=== PATIENT | female | born 1995 | race Two or more races ===

== ENCOUNTER 2025-01-18 08:37 | Inpatient (IN) | payer MEDICAID ==
[~2025-01-18] VITALS: Ht 170 cm; Wt 90.3 kg
[2025-01-18] MEDS ORDERED: LIDOCAINE 2%HCL (LOCAL ANESTH.) INJ 20ML MDV IJ PRN (09:00)
[2025-01-18] MEDS ORDERED: BUTORPHANOL TARTRATE 2 MG/1 ML VIAL IV PRN ×2 (09:00)
[2025-01-18 09:58] LABS: Hematocrit 38.0 % (36.0-46.0); Hemoglobin 13.0 g/dL (12.2-16.2); Mean Corpuscular Hemoglobin 32.3 pg (28.0-32.0); Mean Corpuscular Volume 94.5 fL (80.0-100.0); Nucleated Red Blood Cells % 0.1 %
[2025-01-18 10:09] LABS: Urine Protein, UAD Negative (Negative)
[2025-01-18 10:11] LABS: INR 0.97 (0.9-1.15); Partial Thromboplastin Time 26.2 SEC (24.5-34.5); Prothrombin Time 10.3 sec (9.3-11.8)
[2025-01-18 10:13] LABS: Amphetamine Screen, Urine Neg (NEGATIVE); Barbiturate Scree,Urine Neg (NEGATIVE); Benzodiazephine Screen, Urine Neg (NEGATIVE); Cannabinoid Screen, Urine Neg (NEGATIVE); Cocaine Screen, Urine Neg (NEGATIVE); Opiate Scree,Urine Neg (NEGATIVE); Phencyclidine Screen, Urine Neg (NEGATIVE)
[2025-01-18 10:13] LABS: Alanine Aminotransferase 12 U/L (7-40); Albumin 3.9 g/dL (3.2-4.8); Anion Gap 11 (5-15); BUN/Creatinine Ratio 14.5 (10.0-20.0); Calcium 9.1 mg/dL (8.7-10.4); Carbon Dioxide 21 mmol/L (20-31); Potassium 3.7 mmol/L (3.5-5.1); Sodium 139 mmol/L (136-145); Total Protein 6.1 g/dL (5.7-8.2)
[2025-01-18 10:14] LABS: Bilirubin, Total 0.5 mg/dL (0.2-1.0)
[2025-01-18 10:23] LABS: Alkaline Phosphatase 135 U/L (46-116); Blood Urea Nitrogen 9 mg/dL (9-23); Chloride 107 mmol/L (98-107); Glucose 107 mg/dL (74-106)
[2025-01-18] MEDS: WITCH HAZEL-GLYCERIN PAD TOP PRN (11:30)
[2025-01-18] MEDS: LACTATED RINGER'S 1,000 ML IV SCH (11:30)
[2025-01-18] MEDS: DERMOPLAST 60ML BOTTLE TOP PRN (11:30)
[2025-01-18] MEDS: PHISODERM TOP SOLN 240ML BTL TOP PRN (11:30)
[2025-01-18] MEDS ORDERED: NALBUPHINE HCL 10 MG/1ml INJECTION IV PRN (23:00)
--- NOTE | 2025-01-19 05:55 | DVHHP2 ---
OB CC & HPI Date Date of Admission: Jan 19, 2025 Patient Identification: : 1 Para: 0 EDC: Jan 27, 2025 EGA: 39 wks Chief Complaints: Reason for admission: induction of labor (Patients primary sent for induction 2nd GDM 39 weeks, ) Admission Nurse Assessment Rev: No History of Present Complaints Patient states " she had care in [place] early 1st trimester and was given her current due date". [facility] records say " no care prior ". Dr Rosales her primary has sent for induction. I am covering for the weekend. Past Medical History Cardiac: No pertinent Hx Pulmonary: No pertinent Hx Central Nervous System: No pertinent Hx GI: No pertinent Hx Hemotology/Oncology: No pertinent Hx Hepatobiliary: No pertinent Hx Psychiatric: No pertinent Hx Musculoskeletal: No pertinent Hx Rheumotologic: No pertinent Hx Infectious Disease: No peritnent Hx ENT: No pertinent Hx Renal/: No pertinent Hx Endocrine: No pertinent Hx Dermatology: No pertinent Hx Past Surgical History: No pertinent Hx OB History OB History Care: Limited Care Ultrasounds: Normal mid trimester US Obstetrical Complications: Gestational Diabetes Medical Complications: None Allergies: Coded Allergies: NO KNOWN ALLERGIES (Unverified , 01/18/25) Current Medications Current Medications Medications (Trade) Dose Ordered Sig/Akshat Route PRN Reason Start Time Stop Time Status Last Admin Lactated Ringer's 1,000 ml @ 125 mls/hr Q8H IV 01/18/25 09:00 01/18/25 19:37 Witch Afsaneh (Tucks) 1 pad PRN PRN TOP PERINEAL AREA DISCOMFORT 01/18/25 09:00 01/18/25 11:30 Sodium Lauryl Sulfate (Phisoderm) 240 ml PRN PRN TOP PERINEAL AREA DISCOMFORT 01/18/25 09:00 01/18/25 11:30 Benzocaine (Dermoplast) 1 applic PRN PRN TOP PERINEAL AREA DISCOMFORT 01/18/25 09:00 01/18/25 11:30 Butorphanol Tartrate (Stadol Injection) 1 mg Q4HPRN PRN IV MODERATE PAIN (4-6 PAIN SCALE) 01/18/25 09:00 Cancel Butorphanol Tartrate (Stadol Injection) 2 mg Q4HPRN PRN IV SEVERE PAIN (7-10 PAIN SCALE) 01/18/25 09:00 Cancel Lidocaine HCl (Xylocaine) 20 ml ONCE PRN IJ PERINEAL AREA DISCOMFORT 01/18/25 09:00 Misoprostol (Cytotec) 50 mcg Q4HPRN PRN PO CERVICAL RIPENING 01/18/25 11:00 01/19/25 04:00 Nalbuphine HCl (Nubain) 10 mg Q4HP PRN IV MODERATE PAIN (4-6 PAIN SCALE) 01/18/25 23:00 Oxytocin 1,000 ml @ 6 ml/hr Q24H IV 01/18/25 23:00 Family & Social History Family/Social History Blood Type: O+ Rubella: immune RPR/VDRL: Negative GBS Status: Negative HBsAG: Negative Review of Systems Constitutional: No symptom reported Ears, Nose, & Throat: No symptom reported Eyes: No symptom reported Pulmonary/Respiratory: No symptom reported Cardiovascular: No symptom reported Gastrointestinal: No symptom reported Genitourinary: No symptom reported Musculoskeletal: No symptom reported Skin: No symptom reported Psychiatric: No symptom reported Endocrine: No symptom reported Hemotologic/Lymphatic: No symptom reported OB Admission Exam Physical Exam HEENT: TMs Normal, Fontanelles Normal, Nasal Mucosa Normal, Eyes non-injected, Oropharynx Normal, PERRLA, Moist Membranes, EOMI Heart: Rhythm Normal Lungs: Clear Abdomen: Gravid Extremities: Normal Reflexes: Normal Cervical Dilatation: 1cm Effacement: 25% Station: -3 Membranes: Intact Heart Rate: 130's Accelerations: Accelerations Present Decelerations: No Decelerations Short Term Variability: Present Halfway Variability: Average (6-25) Contractions on Admission: < 5 Minutes Apart Intensity: Mild OB Plan Plan Admitting Diagnosis: Induction of labor Plan: Induction (s/p 5 Cytotec) NILTON SANTIAGO DO Jan 19, 2025 05:55
--- NOTE | 2025-01-19 06:09 | DVHPN2 ---
Chief Complaints Patient reports: No new complaints, Feels better Nursing reports: No new complaints, No abdominal pain (only contraction pain mild), No chest pain, No dizziness, No cough Objective Vitals reassuring heart tones, maternal reassuring Medications Current Medications Medications (Trade) Dose Ordered Sig/Akshat Route PRN Reason Start Time Stop Time Status Last Admin Benzocaine (Dermoplast) 1 applic PRN PRN TOP PERINEAL AREA DISCOMFORT 01/18/25 09:00 01/18/25 11:30 Butorphanol Tartrate (Stadol Injection) 1 mg Q4HPRN PRN IV MODERATE PAIN (4-6 PAIN SCALE) 01/18/25 09:00 Cancel Butorphanol Tartrate (Stadol Injection) 2 mg Q4HPRN PRN IV SEVERE PAIN (7-10 PAIN SCALE) 01/18/25 09:00 Cancel Lactated Ringer's 1,000 ml @ 125 mls/hr Q8H IV 01/18/25 09:00 01/18/25 19:37 Lidocaine HCl (Xylocaine) 20 ml ONCE PRN IJ PERINEAL AREA DISCOMFORT 01/18/25 09:00 Misoprostol (Cytotec) 50 mcg Q4HPRN PRN PO CERVICAL RIPENING 01/18/25 11:00 01/19/25 04:00 Nalbuphine HCl (Nubain) 10 mg Q4HP PRN IV MODERATE PAIN (4-6 PAIN SCALE) 01/18/25 23:00 Oxytocin 1,000 ml @ 6 ml/hr Q24H IV 01/18/25 23:00 Sodium Lauryl Sulfate (Phisoderm) 240 ml PRN PRN TOP PERINEAL AREA DISCOMFORT 01/18/25 09:00 01/18/25 11:30 Jack Afsaenh (Tucks) 1 pad PRN PRN TOP PERINEAL AREA DISCOMFORT 01/18/25 09:00 01/18/25 11:30 General: Normal Head/Eyes: Normal ENT: Normal Neck: Normal Lungs: Normal Cardiovascular: Normal Abdominal: Normal Musculoskeletal: Normal Extremities: Normal Skin: Normal Neurological: Normal Studies Laboratory Tests 01/18/25 09:29 Test 01/18/25 09:29 Range/Units Serum Glucose 107 H 74-106 mg/dL Ass/Plan Assessment hosptial day #2 Plan Plan : Pitocin NILTON Miranda DO Jan 19, 2025 06:09
[2025-01-19] MEDS: LACT. RINGERS/OXYTOCIN 20UNITS 1,000 ML IV SCH (09:15)
--- NOTE | 2025-01-20 06:01 | DVHPN2 ---
Chief Complaints Patient reports: No new complaints, Feels better, Other (excellent movement No sig change in cervix 3cm 50% -2) Nursing reports: No new complaints, No abdominal pain (only contraction pain mild), No chest pain, No dizziness, No cough Objective General: Normal Head/Eyes: Normal ENT: Normal Neck: Normal Lungs: Normal Cardiovascular: Normal Abdominal: Normal Musculoskeletal: Normal Extremities: Normal Skin: Normal Neurological: Normal Studies Laboratory Tests 01/18/25 09:29 Test 01/18/25 09:29 Range/Units Serum Glucose 107 H 74-106 mg/dL Ass/Plan Assessment hosptial day #3 on Pitocin s/p multiple cytotec Plan continued induction... Long discussion with regards to continued induction and how reassuring her baby has looked , Options given for continued induction, discharge home to return for another trial induction, or section for failed induction. D/W her primary OB Dr Rosales who is aware of patients condition. Patient would like to continue induction at this time. 4:50 still no progress patient requesting to proceed with section ; OR notified : Risks benefits complications discussed with partner marketing manager again after this AM discussion. This discussion not limited to infection , bleeding, transfusion, pain, paralysis , PE , DVT , UT, Stroke and . We discussed risks associated with options in the future. All questions and answered and encouraged. NILTON SANTIAGO DO Jan 20, 2025 06:01
--- NOTE | 2025-01-20 08:18 | DVH ---
LIMITED OB ULTRASOUND > 14 WKS: HISTORY: Presentation and EFW TECHNIQUE: Multiple real-time grayscale images of the gravid uterus with duplex Doppler color flow an d M-mode spectral analysis. TRANSDUCER: Transabdominal COMPARISON: None FINDINGS: IUP single live fetus at 38 weeks and 5 days based on composite averages of the BPD, head circumferen ce, abdominal circumference and femur length Estimated weight 3408 grams heart rate 130 beats per minute TERRI 15.3 cm Cervix is not visualized Cephalic Presentation Fundal Placenta without previa or abruption. IMPRESSION: IUP single live fetus at 38 weeks and 5 days AUA corresponding to an TIFFANI of 01/29/2025
[2025-01-20] MEDS ORDERED: ceFAZolin 2 GM/D5W50ml 50 ML IV ONE (13:45)
[2025-01-20] MEDS ORDERED: MIDAZOLAM HCL 2MG/2ML 2ml VIAL (1mg/ml) ONE (15:36)
[2025-01-20] MEDS ORDERED: SODIUM CHLORIDE LOCK 20 ML ONE (15:36)
[2025-01-20] MEDS ORDERED: ONDANSETRON HCL 4 MG/2 ML VIAL ONE (15:36)
[2025-01-20] MEDS ORDERED: MORPHINE SULF PF 5 MG/10 ML VIAL ONE (15:36)
[2025-01-20] MEDS ORDERED: KETAMINE 50mg/ML 1ml syringe ONE (15:36)
[2025-01-20] MEDS ORDERED: fentaNYL CITRATE 100 MCG/2 ML VL ONE (15:36)
[2025-01-20] MEDS: ceFAZolin 2 GM/D5W50ml 50 ML IV ONE (16:31)
--- NOTE | 2025-01-20 16:47 | DVHOP2 ---
Operative Report - 2 Report Details Date: 01/20/25 Preop Diagnosis: 39+ , GDM , failed induction Postop Diagnosis: same Surgeon: Edith Santiago (Primary OB nd DO) Production Grader: none Anesthesiologist: Anesthesia: Regional Drains: [place] Implant: none Consent: The patient was informed of the risks and benefits of the procedure. These include but are not limited to complications of anesthesia, postoperative infection, incomplete relief of symptoms, recurrence of symptoms, damage to blood vessels, nerves and tendons, deep venous thrombosis, pulmonary embolism and possible need for repeat surgery in the future. Complications: none Estimated Blood Loss: 600cc Fluids: see Anesthesia log Findings: Infant APGARS Indications for Surgery: Failed induction Name of Procedure Performed Primary section Procedure Details Procedure Details: See detailed procedure on subsequent operative port there are 2 operating ports done. Specimen: Placenta Condition Good Disposition Home Visit Coding OBGYN Date of Service: Feb 11, 2025 Billing Provider: NILTON SANTIAGO DO LICENSED MENTAL HEALTH PROFESSIONAL Common Visit Codes: 75859-WKN/OBS SAME DATE (HIGH) LICENSED MENTAL HEALTH PROFESSIONAL Procedure Codes: [id number] OB CARE, DEL NILTON SANTIAGO DO Jan 20, 2025 16:47
[2025-01-20 17:39] VITALS: PULSE 83; RESP 12; O2SAT 97
[2025-01-20] MEDS ORDERED: diphenhdrAMINE HCL 50 MG/1 ML VL IV PRN (17:45)
[2025-01-20] MEDS ORDERED: NALOXONE HCL 0.4 MG/ML VIAL IV PRN (17:45)
[2025-01-20] MEDS ORDERED: MORPHINE SULFATE INJ 2 MG/ml SYRG IV PRN (17:45)
[2025-01-20] MEDS ORDERED: HYDROmorphone HCL 2 MG/ML VL/or syr IV PRN ×2 (17:45)
[2025-01-20] MEDS ORDERED: MORPHINE SULFATE 4 MG/ML SYR/VIAL IV PRN (17:45)
[2025-01-20 18:10] VITALS: BP 91/51; PULSE 71; RESP 18; TEMP 97.9; O2SAT 100
[2025-01-20] MEDS: METHYLERGONOVINE MALEATE 0.2 MG/ML AMP IM ONE ×2 (19:02→19:03)
[2025-01-20] MEDS: TETRACAINE 1% INJ 2 ML VIAL IJ ONE (19:03)
[2025-01-20] MEDS: METOCLOPRAMIDE HCL 5MG/ml INJ 2ml VIAL IV ONE (19:03)
[2025-01-20] MEDS: LACT. RINGERS/OXYTOCIN 20UNITS 500 ML IV ONE ×2 (19:03→21:07)
[2025-01-20 19:10] VITALS: BP 113/73; PULSE 66; RESP 18; O2SAT 99
[2025-01-20 20:10] VITALS: BP 112/68; PULSE 72; RESP 18; O2SAT 99
[2025-01-20] MEDS: ACETAMINOPHEN IV 1000 MG/100ML (10MG/ML) IV PRN (20:50)
[2025-01-20 21:10] VITALS: BP 124/66; PULSE 73; RESP 18; O2SAT 97
[2025-01-20 23:00] VITALS: BP 125/58; PULSE 76; RESP 17; TEMP 98.4; O2SAT 99
[2025-01-21] VITALS (18 sets, daily range): BP systolic 91–124; BP diastolic 47–80; PULSE 67–95; RESP 16–20; TEMP 98–98.9; O2SAT 96–100
[2025-01-21] MEDS: ceFAZolin 1GM/50ML 50 ML IV SCH (00:51)
[2025-01-21] MEDS: KETOROLAC TROMETH 30 MG/ML 1ML VIAL IV ONE (04:50)
[2025-01-21] MEDS ORDERED: BISACODYL 10 MG RECT SUPP PR PRN (06:15)
[2025-01-21] MEDS ORDERED: HYDROcodone-ACET 5/325MG TAB PO PRN (06:15)
[2025-01-21 06:29] LABS: Hematocrit 28.2 % (36.0-46.0); Hemoglobin 9.7 g/dL (12.2-16.2); Mean Corpuscular Hemoglobin 32.6 pg (28.0-32.0); Mean Corpuscular Volume 95.1 fL (80.0-100.0); Nucleated Red Blood Cells % 0.0 %
[2025-01-21] MEDS: FERROUS SULFATE 325mg EC TAB PO SCH (09:55)
[2025-01-21] MEDS: DOCUSATE SOD 100 MG CAP PO SCH (09:55)
[2025-01-21] MEDS: IBUPROFEN 800 MG TAB PO PRN (11:15)
[2025-01-21] MEDS: SIMETHICONE 80 MG CHEWABLE TABLET PO SCH (11:41)
[2025-01-21 20:07] LABS: Chlamydia Trachomatis, NAA Negative (Negative); Neisseria gonorrhoeae, NAA Negative (Negative)
[2025-01-21] MEDS: HYDROcodone-ACET 5/325MG TAB PO PRN (20:40)
[2025-01-21] MEDS ORDERED: DOCU-94 PO (22:08)
[2025-01-21] MEDS ORDERED: HYDR-4798 PO (22:08)
[2025-01-21] MEDS ORDERED: IBUP-1455 PO (22:08)
[2025-01-21] MEDS ORDERED: FER325T PO (22:09)
[2025-01-21] MEDS ORDERED: PREN-96 PO (22:09)
[2025-01-22 02:54] VITALS: BP 105/61; PULSE 77; RESP 18; TEMP 98.1; O2SAT 99
[2025-01-22] MEDS ORDERED: AMMONIA 0.33 ML INHALANT IN ONE (03:00)
[2025-01-22] MEDS ORDERED: IRON SUCROSE COMPLEX 110 ML IV SCH (07:00)
[2025-01-22 07:05] VITALS: BP 102/59; PULSE 89; RESP 18; TEMP 98.9; O2SAT 99
[2025-01-22 11:30] VITALS: BP 110/63; PULSE 71; RESP 16; TEMP 98.4; O2SAT 99
--- NOTE | 2025-01-22 15:11 | DVHDS2 ---
Obstetrics Discharge Summary Obstetrics Discharge Summary Date of Admission: Jan 18, 2025 Date of Discharge: Jan 22, 2025 Reason For Admission: Induction of Labor Procedures: NST, Ultrasound, Mgmt of Obstetrics Compli (GDM) Intrapartum Procedures: (primary LTCS) Procedures: Antibiotics, Hct/date: (01/21/25), Hgb/date: (01/21/25) Operative Complicat: None Discharge Diagnosis: Term -Delivered Discharge Information: Activity (as tolerated, no heavy lifting and nothing in the vagina for 6 weeks), Diet (Routine), Medications (Rx sent), Instructions (Routine), Discharge to (Home), Accompanied by (family), Discarge date (01/22/25) Visit Coding OBGYN Date of Service: Jan 22, 2025 Billing Provider: IGNACIO LITTLE CNM SHIRT TRIMMER Common Visit Codes: 98814-CEH/OBS DISCH DAY <30MIN IGNACIO LITTLE CNM Jan 22, 2025 15:11
--- NOTE | 2025-01-22 15:11 | DVHPN2 ---
Progress Note Date Seen: Jan 22, 2025 Subjective S: bleeding is less, eating food without issues, denies lightheaded/dizziness, pain well controlled with oral medications, no concerns with urinating, passing flatus, no BM yet, ambulating well, vital signs Vital Sign Date Time Temp Pulse Resp B/P (MAP) Pulse Ox O2 Delivery O2 Flow Rate FiO2 01/22/25 11:30 98.4 71 16 110/63 (79) 99 98.4 01/22/25 07:05 Room Air Total Intake and Output 01/21/25 01/21/25 01/22/25 15:00 23:00 07:00 Output Total 1250 ml 1150 ml Balance -1250 ml -1150 ml medications Current Medications Medications Dose Ordered Sig/Akshat Route Start Time Stop Time Status Last Admin Dose Admin Lactated Ringer's 1,000 ml @ 125 mls/hr Q8H IV 01/18/25 09:00 01/21/25 04:47 125 MLS/HR Jack Shelby 1 pad PRN PRN TOP 01/18/25 09:00 01/18/25 11:30 1 PAD Sodium Lauryl Sulfate 240 ml PRN PRN TOP 01/18/25 09:00 01/18/25 11:30 240 ML Benzocaine 1 applic PRN PRN TOP 01/18/25 09:00 01/18/25 11:30 1 APPLIC Butorphanol Tartrate 1 mg Q4HPRN PRN IV 01/18/25 09:00 Cancel Butorphanol Tartrate 2 mg Q4HPRN PRN IV 01/18/25 09:00 Cancel Diphenhydramine HCl 25 mg Q4HP PRN IV 01/20/25 17:45 Cefazolin Sodium 50 ml @ 100 mls/hr Q8H IV 01/21/25 01:00 01/22/25 00:39 100 MLS/HR Docusate Sodium 100 mg Q12HR PO 01/21/25 10:00 01/22/25 09:07 100 MG Dimethicone 80 mg QID PO 01/21/25 12:00 01/22/25 09:08 80 MG Bisacodyl 10 mg DAILYP PRN CA 01/21/25 06:15 Ibuprofen 800 mg Q8HP PRN PO 01/21/25 06:15 01/22/25 13:44 800 MG Ferrous Sulfate 325 mg Q12HR PO 01/21/25 10:00 01/22/25 08:27 325 MG Acetaminophen/ Hydrocodone Bitart 1 tab Q4HPRN PRN PO 01/21/25 06:15 Acetaminophen/ Hydrocodone Bitart 2 tab Q4HPRN PRN PO 01/21/25 06:15 01/22/25 02:20 2 TAB Iron Sucrose 110 ml @ 110 mls/hr DAILY@0700 IV 01/22/25 07:00 01/23/25 07:59 laboratory and microbiology Laboratory Tests 01/21/25 05:48 01/18/25 09:29 Test 01/18/25 09:29 Range/Units Serum Glucose 107 H 74-106 mg/dL Objective O: VSS Chest: heart sounds normal and lung sounds clear bilaterally Abd: soft, non-tender, fundus at U/firm/midline, active bowel sounds, no rebound or guarding Incision: sylke dressing open to air, clean/dry/intact Ext: Non-tender, No edema, 2+ BLE DTRs Lochia: minimal See lab results Problems(with codes): (1) S/P primary low transverse (2) Precipitous drop in hematocrit Assessment/Plan A: 29yo now POD#2 s/p primary Anemia Rh+ Rubella Immune P: D/C home today Rx sent to pharmacy precautions and preeclampsia warning signs reviewed F/U with Dr. Rosales in 1 week Plan discussed with: Patient, Other (family) Visit Coding OBGYN Date of Service: Jan 22, 2025 Billing Provider: IGNACIO LITTLE CNM TEA TREE FARM WORKER Common Visit Codes: [id number] INP/OBS CARE(HIGH) IGNACIO LITTLE CNM Jan 22, 2025 15:11
[2025-01-22 15:15] VITALS: BP 104/60; PULSE 73; RESP 16; TEMP 98.6; O2SAT 99
--- NOTE | 2025-02-10 23:08 | DVHOP2 ---
Operative Report - 2 Report Details Date: 02/10/25 Preop Diagnosis: 39+ , GDM , failed induction Postop Diagnosis: same Surgeon: Edith Santiago Vapor Coater: none Anesthesiologist: Anesthesia: Regional Drains: LOWE CATHETER Implant: none Consent: The patient was informed of the risks and benefits of the procedure. These include but are not limited to complications of anesthesia, postoperative infection, incomplete relief of symptoms, recurrence of symptoms, damage to blood vessels, nerves and tendons, deep venous thrombosis, pulmonary embolism and possible need for repeat surgery in the future. Complications: none Estimated Blood Loss: 600cc Name of Procedure Performed Primary section Procedure Details Procedure Details: PRIMARY LOW TRANSVERSE SECTION PATIENT TAKEN TO THE OPERATING PLACED IN SITTING POSITIONS SPINAL PLUS PLACED WITHOUT DIFFICULTY THEN PREPPED DRAPED STERILE FASHION PLACED LEFT LATERAL TILT LOW PFANNENSTIEL INCISION MADE WITH SCALPEL DOWN TO THE RECTUS FASCIA NICKED IN MIDLINE CARRIED LATERALLY RECTUS MUSCLE MIDLINE PERITONEUM IDENTIFIED ENTERED WITH SHARP DISSECTION VESICOUTERINE PERITONEUM DISSECTED OFF LOWER UTERINE SEGMENT IN SCALPEL WAS USED TO DISSECT DOWN TO THE CURRENT MEMBRANES WERE RUPTURED A HEMOSTAT INFANT FOUND TO BE VERTEX POSITION IF 1 HAND PLACED LOWER UTERINE SEGMENT AND 'S HEAD ESSENTIALLY DELIVERED SPONTANEOUSLY NOSE AND MOUTH BULB SUCTION CORD CUT AND HANDED OFF TO AWAITING RESPIRATORY TEAM. VIGOROUS CRY AND TONE. BLOOD SAMPLES WERE TAKEN UMBILICAL GAS WAS SENT PLACENTA REMOVED WE THEN CLOSED THE UTERUS WITH THE DOUBLE LAYER OF 0 VICRYL INCORPORATING THE BLADDER FLAP IN THE 2ND LAYER. SHE HAD COMPLETE HEMOSTASIS EBL 600 WE CLEARED THE PELVIS OF ALL CLOTS AND DEBRIS IRRIGATED INSTRUMENT LAP SPONGE COUNT CORRECT X1 PERITONEUM CLOSED WITH RUNNING CONTINUOUS 2-0 VICRYL AND THEN THE RECTUS FASCIA CLOSED WITH 0 LOOPED PDS SUBQ WAS CLOSED WITH INTERRUPTED OF 2-0 CHROMIC AND THEN A PAUL PROLENE NEEDLE WAS USED TO CLOSE THE SUBCUTICULAR SKIN WELL BENZOIN STERI-STRIPS PLACED ABD PAD AND A PRESSURE DRESSING PATIENT WAS THEN FROG-LEG CLEARED OF ALL CLOTS DEBRIS WITH GOOD FIRM UTERUS AND TAKEN RECOVERY ROOM STABLE CONDITION INFANT WENT TO NURSERY. Specimen: Placenta Condition Good Disposition PACU Nursery Visit Coding OBGYN Date of Service: Jan 20, 2025 Billing Provider: NILTON SANTIAGO DO RELIGIOUS EDUCATION COORDINATOR Common Visit Codes: [id number] INP/OBS CARE(MOD), [id number] INP/OBS CARE(HIGH), 22133-YXT/OBS SAME DATE (LOW) RELIGIOUS EDUCATION COORDINATOR Procedure Codes: 41104-74- ASSIST @ NILTON SANTIAGO DO Feb 10, 2025 23:08
== END 2025-01-22 17:42 | disposition home or self-care (01) | DRG 540 ==
LOC: OBSVTOIN 08:37 → LDRP 08:37
PROVIDERS: ADMIT Obstetrics & Gynecology; ATTEND Obstetrics & Gynecology
PROC: 3E0DXGC Introduction of Other Therapeutic Substance into Mouth and Pharynx, External Approach (ICD-10-PCS; 2025-01-18)
PROC: 3E033VJ Introduction of Other Hormone into Peripheral Vein, Percutaneous Approach (ICD-10-PCS; 2025-01-19)
PROC: 10D00Z1 Extraction of Products of Conception, Low, Open Approach (ICD-10-PCS; principal; 2025-01-20 16:46)
DX: O24.429 Gestational diabetes mellitus in childbirth, unspecified control (principal); O61.9 Failed induction of labor, unspecified; O90.81 Anemia of the puerperium; Z3A.39 39 weeks gestation of pregnancy; Z37.0 Single live birth
CPT/HCPCS: 36415; 59025; 76805; 80053; 80307; 81001; 81002; 82948; 82962; 85025; 85610; 85730; 86780; 86803; 86850; 86900; 86901; 94760; 94762; 96360; 96361; 96365; 96366; 96372; G0378; J0131; J1100; J1756; J2250; J2405; J2590